=== PATIENT | female | born 1940 | race Caucasian/White ===

== ENCOUNTER → 2018-09-13 | Outpatient (CLI) | payer MEDICARE, BC ==
[2014-04-11 14:23] VITALS: BMI 27.1
[~2018-09-13] MED LIST: ACET-3017 PO; ACET500T68 PO; ASPI81TA94 PO; BACL-1 PO; CALC625T57 PO; CARB-127 PO; CARB-71 PO; CETI-169 PO; CIPR-345 PO; DUL20 PO; DULO40CA2 PO; DULO60CA51 PO; DULO60CA56 PO; EZE10 PO; FLU180SY11 IM; GABA-549 PO; GLY25 PO; GLY5 PO; GLYB3TAB PO; HYDR25CA83 PO; IMIP10TA PO; METF-407 PO; METF-450 PO; METF-452 PO; METH-542 PO; METO-259 PO; METO25TA23 PO; METO50TA19 PO; MULT-865 PO; NYST15PO4 TP; ONDA4TAB9 PO; OXYC40TA57 PO; PANT40SU3 PO; PANT40TA65 PO; PNEU0.5D3 IM; POLY17PO25 PO; POTA-23; PRAV20TA65 PO; PRED20TA6 PO; PREG100C44 PO; PREG100C45 PO; RANI-366 PO; SENN8.6T35 PO; SIMV-44 PO; SIMV-54 PO; SINEMET PO; SOLI10TA8; SULF-198 PO; TOPI50TA92; TOPI50TA99 PO; TRAM-420 PO; VERA120T72 PO; VERA240T87 PO; VERA240T95 PO; WARF5TAB23 PO
--- NOTE | 2018-09-13 15:19 | RADIOLOGY IMAGING REPORT ---
FACILITY: [facility] PATIENT NAME: Kirstin Mcallister : 1940 MR: [id number] V: [id number] EXAM DATE: ORDERING PHYSICIAN: RADHA MAYS TECHNOLOGIST: Location: [facility] [place] Patient: Kirstin Mcallister : 1940 Visit/Account:[id number] Date of Sevice: 09/13/2018 DEXA Scan Clinical history: Postmenopausal screening. Comparison: None available. LUMBAR SPINE: The bone mineral density (BMD) measured from L1-L4 correlates with a Z-score 2.8 and a T-score of 1.5 which is Normal as defined by the World Health Organization. The corresponding risk of fracture in the lumbar spine is Not increased compared with a young adult reference population. HIP: Bone mineral density (BMD) measured in the Left total hip region correlates with a Z-score -0.5 and a T-score of -2.1 which is osteopenia as defined by the World Health Organization. The corresponding risk of fracture in the hip is 46 times increased compared with a young adult reference population. T score left femoral neck -2.1 Bone mineral density (BMD) measured in the Femoral Neck region measures 0.753 g/cm2. FOREARM: The bone mineral density (BMD) measured in the ULTRADISTAL Left forearm, where trabecular bone predom inates, correlates with a Z-score of 0.3 and a T-score of was 2.4 which is osteopenia as defined by t he World Health Organization. The corresponding risk of fracture in the distal forearm is 4-6 times increased compared with a young adult reference population. The bone mineral density (BMD) in the MIDSHAFT of the forearm, where cortical bone predominates, bharati elates with a Z-score of -0.1 and a T-score of -2.7 which is osteoporosis as defined by the World Hea h Organization. The corresponding risk of fracture in the midshaft of the forearm is 68 times incre ased compared with a young adult reference population. Impression: 1. Lumbar spine: Normal. 2. Left Hip: Osteopenia. 3. Femoral Neck: Bone Mineral Density is 0.753 DEXA Scan Left forearm: Osteoporosis FRAX? WHO Fracture Risk Assessment Tool link: <http://www.shef.ac.uk/FRAX/tool.jsp?[email or web address]> PLEASE NOTE: 1) The World Health Organization defines low BMD as follows: T-score Normal > -1 Osteopenia < -1 and > -2.5 Osteoporosis < -2.5 without fractures Established osteoporosis < -2.5 with fractures 2) In general, you may wish to consider: Diagnosis Treatment Follow-up DEXA Normal BMD Prevention 2-3 years Osteopenia Prevention/therapy 1-2 years Osteoporosis Therapy Yearly 3) Fracture risk estimated from the T-score is more accurate for vertebral fractures (often spontane ous) than for hip fractures. g/cm2 The next DEXA scan of this patient should include the following sites: L1-L4 and the left hip. And l eft forearm FRAX? WHO Fracture Risk Assessment Tool link: <http://www.shef.ac.uk/FRAX/tool.jsp?[email or web address]> PLEASE NOTE: 1) The World Health Organization defines low BMD as follows: T-score Normal > -1 Osteopenia < -1 and > -2.5 Osteoporosis < -2.5 without fractures Established osteoporosis < -2.5 with fractures 2) In general, you may wish to consider: Diagnosis Treatment Follow-up DEXA Normal BMD Prevention 2-3 years Osteopenia Prevention/therapy 1-2 years Osteoporosis Therapy Yearly3) Fracture ris k estimated from the T-score is more accurate for vertebral fractures (often spontaneous) than for hi p fractures. Report Dictated By: Shantelle Mejia MD at 09/13/2018 3:10 PM Report E-Signed By: Shantelle Mejia MD at 09/13/2018 3:13 PM WSN:[email or web address]
== END ==
LOC: RAD 00:06
PROVIDERS: ATTEND Family Medicine
DX: M85.852 Other specified disorders of bone density and structure, left thigh (principal)
CPT/HCPCS: 77080

== ENCOUNTER → 2018-10-31 | Outpatient (CLI) | payer MEDICARE, BC ==
[2014-04-11 14:23] VITALS: BMI 27.1
[~2018-10-31] MED LIST changes: -RANI-366 PO; +RANI-54 PO
[2018-10-31 13:17] LABS: PLATELET COUNT, AUTOMATED 183 K/uL (150-450)
== END ==
LOC: LAB 12:56
PROVIDERS: ATTEND Family Medicine
DX: I48.91 Unspecified atrial fibrillation (principal); E11.9 Type 2 diabetes mellitus without complications
CPT/HCPCS: 36415; 82310; 82374; 82435; 82565; 82947; 84132; 84295; 84520; 85025